=== PATIENT | female | born 1965 | race Caucasian/White ===

== ENCOUNTER 2017-09-02 15:51 | Emergency (ER) | payer BC ==
[2017-09-02 16:03] VITALS: BP 125/66
[2017-09-02] MEDS ORDERED: HYDROcodone/ACETAMIN 5-325 MG* 1 TAB PO ONE (16:13)
[2017-09-02] MEDS ORDERED: Ketorolac INJ* 30 MG/ML 1 ML VIAL IM ONE (16:13)
[2017-09-02] MEDS ORDERED: Dexamethasone IV* 4 MG/ML 1 ML (4 MG) IM ONE (16:13)
[2017-09-02] MEDS ORDERED: Orphenadrine Citrate IV* 30 MG/ML 2 ML VIAL IM ONE (16:13)
--- NOTE | 2017-09-02 16:52 | RAD ---
INDICATION: Low back pain. COMPARISON: There are no prior studies available for comparison. TECHNIQUE: AP and lateral views of the lumbar spine were obtained. The L1 vertebra is partially cut off on the lateral image. FINDINGS: The vertebra are in normal alignment. No fracture is seen. There is moderate to severe disc space narrowing at the L5-S1 level. The remaining disc spaces appear maintained. IMPRESSION: MODERATE TO SEVERE DISC SPACE NARROWING AT THE L5-S1 LEVEL.
--- NOTE | 2017-09-02 16:53 | RAD ---
INDICATION: Back pain. COMPARISON: There are no prior studies available for comparison. TECHNIQUE: 3 views of the sacrococcygeal spine were obtained. FINDINGS: The vertebra are in normal alignment. No fracture is seen. There appears to be facet osteoarthritis at the L5-S1 level. IMPRESSION: 1. NO EVIDENCE FOR FRACTURE. 2. FACET OSTEOARTHRITIS AT THE L5-S1 LEVEL.
--- NOTE | 2017-09-04 12:29 | ED ---
Shoaib Harper Angela, scribed for Oscar Barlow MD on 09/02/17 at 1614 . Back Pain - HPI Summary HPI Summary: This pt is a 52 y/o female presenting to [facility] c/o lower back pain x2 days. Pt reports she was doing "barn chores" over the weekend and after this she began to have low back pain. She states her her low back pain has been progressively worsening and now has right gluteal pain. 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 Pt reports she now feels tight and is unable to bend down secondary to pain. She rates her pain 9/10 in severity. Additionally c/o nausea. Denies urinary or bowel dysfunction, weakness, numbness or tingling in LE. She reports taking 750 mg of robaxin this morning with no relief. She is currently on Lopressor, Voltaren for endocarditis, synthroid, baby aspirin, B12. - History of Current Complaint Chief Complaint: EDBackInjuryPain Stated Complaint: LOWER BACK PAIN Time Seen by Provider: 09/02/17 16:05 Hx Obtained From: Patient Onset/Duration: Lasting Days, Still Present Onset/Duration: Started Days Ago, Still Present Timing: Constant, Lasting Days Back Pain Location: Is Discrete @ - low back and right gluteus Severity Currently: Severe Pain Intensity: 9 Pain Scale Used: 0-10 Numeric Aggravating Symptom(s): Movement, Bending Alleviating Symptom(s): Other - standing up Associated Signs And Symptoms: Negative: Weakness, Numbness, Tingling, Bladder Incontinence, Bowel Incontinence - Allergies/Home Medications Allergies/Adverse Reactions: Allergies Allergy/AdvReac Type Severity Reaction Status Date / Time No Known Allergies Allergy Verified 09/02/17 16:11 PMH/Surg Hx/FS Hx/Imm Hx Endocrine/Hematology History: Reports: Hx Thyroid Disease Denies: Hx Diabetes, Hx Anemia Cardiovascular History: Reports: Other Cardiovascular Problems/Disorders - endocarditis Denies: Hx Pacemaker/ICD GI History: Denies: Hx Jaundice Sensory History: Denies: Hx Hearing Aid Psychiatric History: Denies: Hx Panic Disorder - Cancer History Hx Chemotherapy: No Hx Radiation Therapy: No - Surgical History Surgery Procedure, Year, and Place: UTERINE ABALSION 07/2011,APPENDECTOMY, TONSILS - Immunization History Date of Tetanus Vaccine: 2012 Date of Influenza Vaccine: 2012 Infectious Disease History: No Infectious Disease History: Denies: Traveled Outside the [place] in Last 30 Days - Family History Family History: Mother: skin [place]. - Social History Alcohol Use: None Substance Use Type: Reports: None Smoking Status (MU): Never Smoked Tobacco Review of Systems Negative: Fever, Chills ENT: Negative Cardiovascular: Negative Respiratory: Negative Positive: Nausea Negative: incontinence - urinary or bowel Musculoskeletal: Other - low back pain, right gluteal pain Negative: Headache, Weakness, Paresthesia, Numbness All Other Systems Reviewed And Are Negative: Yes Physical Exam - Summary Physical Exam Summary: VITAL SIGNS: Reviewed. GENERAL: Patient is a well-developed and nourished female who is lying comfortable in the stretcher. Patient is not in any acute respiratory distress. HEAD AND FACE: No signs of trauma. No ecchymosis, hematomas or skull depressions. No sinus tenderness. EYES: PERRLA, EOMI x 2, No injected conjunctiva, no nystagmus. EARS: Hearing grossly intact. Ear canals and tympanic membranes are within normal limits. MOUTH: Oropharynx within normal limits. NECK: Supple, trachea is midline, no adenopathy, no JVD, no carotid bruit, no c- spine tenderness, neck with full ROM. CHEST: Symmetric, no tenderness at palpation LUNGS: Clear to auscultation bilaterally. No wheezing or crackles. CVS: Regular rate and rhythm, S1 and S2 present, no murmurs or gallops appreciated. ABDOMEN: Soft, non-tender. No signs of distention. No rebound no guarding, and no masses palpated. Bowel sounds are normal. MSK: FROM in all major joints, no edema, no cyanosis or clubbing. Paraspinal muscle tenderness in the lumbar spine. Vertebral tenderness in the lumbar spine. NEURO: Alert and oriented x 3. No acute neurological deficits. Speech is normal and follows commands. SKIN: Dry and warm Triage Information Reviewed: Yes Vital Signs On Initial Exam: Initial Vitals Temp Pulse Resp BP Pulse Ox 98.8 F 85 18 125/66 100 09/02/17 16:00 09/02/17 16:00 09/02/17 16:00 09/02/17 16:00 09/02/17 16:00 Vital Signs Reviewed: Yes Diagnostics - Vital Signs Vital Signs Temp Pulse Resp BP Pulse Ox 09/02/17 16:00 98.8 F 85 18 125/66 100 - Laboratory Lab Statement: Any lab studies that have been ordered have been reviewed, and results considered in the medical decision making process. - Radiology Sacrum and Coccyx XR Xray Interpretation: No Acute Changes - IMPRESSION: 1. No evidence for fracture. 2. Facet osteoarthritis at the L5-S1 level. Dr. Barlow has reviewed this radiology report. Radiology Interpretation Completed By: Radiologist Lumbar spine XR Xray Interpretation: No Acute Changes - IMPRESSION: Moderate to severe disc space narrowing at the level L5-S1 level. Dr. Barlow has reviewed this radiology report. Radiology Interpretation Completed By: Radiologist Back Pain Course/Dx - Course Assessment/Plan: This pt is a 52 y/o female presenting to [facility] c/o lower back pain x2 days. Pt reports she was doing "barn chores" over the weekend and after this she began to have low back pain. She states her her low back pain has been progressively worsening and now has right gluteal pain. 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 Pt reports she now feels tight and is unable to bend down secondary to pain. She rates her pain 9/10 in severity. Additionally c/o nausea. Sacrum and coccyx XR: 1. No evidence for fracture. 2. Facet osteoarthritis at the L5-S1 level. Lumbar spine XR: Moderate to severe disc space narrowing at the level L5 -S1 level. XRs are negative for fracture or dislocation. In the ED course, the pt was given Decadron, [place], Norflex, and Toradol. Pts symptoms improved and she reports feeling better. Therefore, she will be discharged to home with follow up from her PCP. She was given prescriptions for [place] and Medrol dosepak. Pt was instructed to return to the ED for any worsening or new symptoms. Pt is hemodynamically stable, alert and oriented x3. - Diagnoses Provider Diagnoses: Back pain Discharge - Discharge Plan Condition: Stable Disposition: HOME Prescriptions: HYDROcodone/ACETAMIN 5-325 MG* [[place] 5-325 TAB*] 1 tab PO Q6H PRN #12 tab MDD 4 PRN Reason: Pain Ibuprofen TAB* [Motrin TAB* 600 MG] 600 mg PO Q8H PRN #30 tab PRN Reason: Pain methylPREDNISolone [Medrol Dosepak 4 MG*] 0 mg PO .SEE GERBER INSTRUCTION #1 gerber Patient Education Materials: Back Pain (ED) Forms: *Work Release Referrals: Elsa Francisco NP [Primary Care Provider] - 3 Days Additional Instructions: Please follow up with your primary care provider. RETURN TO THE ED FOR ANY WORSENING SYMPTOMS. The documentation as recorded by the Shoaib plunkett Angela accurately reflects the service I personally performed and the decisions made by Cain demarco Walter, MD.
== END 2017-09-02 18:32 | disposition home or self-care (01) ==
LOC: ED 15:51
DX: M54.9 Dorsalgia, unspecified (principal); M54.5 Low back pain; R11.0 Nausea; Z79.82 Long term (current) use of aspirin
CPT/HCPCS: 72100; 72220; 99282; J1100; J1885; J2360

== ENCOUNTER 2019-08-11 11:22 | Emergency (ER) | payer BC ==
--- OUTSIDE RECORDS SUMMARY | 2019-08-11 11:28 | XMS REPORT | Continuity of Care Document ---
:1965 External Reference #:[id number] Author Name Elsa Francisco N.P. (transmitted by agent of provider Love Sears) Address [address], [place] [address] Care Team Providers Name Role Phone Cherri Menendez MD - Internal Care Team Information Institution Director [phone] Medicine Problems Active Problems Provider Date Hyperlipidemia Elsa Francisco N.P. Onset: 08/19/2011 Margo thyroiditis Todd Danielle M.D. Onset: 08/20/2013 Depressive disorder Elsa Francisco N.P. Onset: 08/19/2011 Obstructive sleep apnea syndrome Rand Barnett MD Onset: 11/28/2015 Fibromyalgia Todd Danielle M.D. Onset: 09/08/2014 Premature beats Elsa Francisco N.P. Onset: 08/19/2011 Chronic pain syndrome Todd Danielle M.D. Onset: 05/25/2013 Immunological Findings Nonspecified Other & Todd Danielle M.D. Onset: 2012 Unspecified Localized, primary osteoarthritis Todd Danielle M.D. Onset: 12/22/2014 Dyspnea Rand Barnett MD Onset: 10/30/2016 Social History Type Date Description Comments Sex Unknown Tobacco Use Start: Unknown Never Smoked Cigarettes ETOH Use Denies alcohol use Recreational Drug Use Denies Drug Use Tobacco Use Start: Unknown Patient has never smoked Smoking Status Reviewed: 08/05/19 Patient has never smoked Exercise Type/Frequency Exercises sporadically Allergies, Adverse Reactions, Alerts Description No Known Drug Allergies Medications Active Medications SIG Qnty Indications Ordering Date Provider Multaq take 1 tab by 180tabs I49.3 Rubina Barboza, 10/18/2016 400mg Tablets mouth twice a day M.D. Metoprolol Succinate 1/2 tab by mouth 45tabs Rubina Brazoria, 08/21/2015 ER every day M.D. 50mg Tablets ER 24HR Ampicillin 4 capsules 30mins 4caps Elsa Francisco, 12/28/2009 500mg before dental N.P. Capsules procedure Aspir-81 1 po qd 100tabs Unknown 81mg Tablets DR History Medications Levothyroxine Sodium 1 by mouth 30tabs Elsa Maryam, 05/27/2019 - every day N.P. 07/19/2019 25mcg Tablets Florastor 1 by mouth 60caps R19.7 Elsa Gurrolamichael, 04/29/2019 - 250mg Capsules twice a day N.P. 07/19/2019 Immunizations CPT Code Status Date Vaccine Lot # [id number] Given 04/20/2013 Tdap - Tetanus/Diptheria/Acellular Pertussis [id number] Given 05/19/2012 Influenza Virus 3Yrs & Over Vital Signs Date Vital Result Comment 08/05/2019 8:57am Height 66.75 inches 5'6.75" Weight 206.50 lb Heart Rate 70 /min BP Systolic Sitting 117 mmHg BP Diastolic Sitting 74 mmHg Body Temperature 97.7 F O2 % BldC Oximetry 99 % BMI (Body Mass Index) 32.6 kg/m2 07/21/2019 7:36am Height 66.75 inches 5'6.75" Weight 203.00 lb w/ shoes Heart Rate 84 /min BP Systolic Sitting 116 mmHg BP Diastolic Sitting 79 mmHg BMI (Body Mass Index) 32.0 kg/m2 Results Test Acquired Date Facility Test Result H/L Range Note Laboratory test 07/21/2019 [facility] TSH 2.19 Normal 0.34- 5.[address] (Thyroid mcIU/[place] [address] Stim [phone] Horm) Free T4 (Free Thyroxine) 0.88 ng/dL Normal 0.61-1.12 T3 Total 108 ng/dL Normal 87-178 TSH Receptor Assay 4.04 IU/L Abnormal 1 Laboratory 05/27/2019 [facility] TSH (Thyroid 0.17 Low 0.34- 5.[address] Stim [facility]) mcIU/[place] [address] [phone] Laboratory 04/30/2019 [facility] C Difficile SEE RESULT 2 test finding [address] [place] [address] [phone] CBC Auto Diff 04/29/2019 [facility] White Blood 6.3 Normal 3.5 -10.[address] Count 10^3/[place] [address] [phone] Red Blood Count 5.17 10^6/uL High 3.70-4.87 Hemoglobin 14.8 g/dL Normal 12.0-16.0 Hematocrit 44 % Normal 35-47 Mean Corpuscular Volume 85 fL Normal 80-97 Mean Corpuscular Hemoglobin 29 pg Normal 27-31 Mean Corpuscular HGB Conc 34 g/dL Normal 31-36 Red Cell Distribution Width 14 % Normal 10-15 Platelet Count 182 10^3/uL Normal 150-450 Mean Platelet Volume 8.1 fL Normal 7.4-10.4 Abs Neutrophils 3.0 10^3/uL Normal 1.5-7.7 Abs Lymphocytes 2.4 10^3/uL Normal 1.0-4.8 Abs Monocytes 0.4 10^3/uL Normal 0-0.8 Abs Eosinophils 0.3 10^3/uL Normal 0-0.6 Abs Basophils 0.1 10^3/uL Normal 0-0.2 Abs Nucleated RBC 0.0 10^3/uL Granulocyte % 48.4 % Lymphocyte % 38.5 % Monocyte % 6.7 % Eosinophil % 5.3 % Basophil % 1.1 % Nucleated Red Blood Cells % 0.2 Comp Metabolic 04/29/2019 [facility] Sodium 140 mmol/L Normal 135-[address] [place] [address] [phone] Potassium 4.1 mmol/L Normal 3.5-5.0 Chloride 106 mmol/L Normal 101-111 Co2 Carbon Dioxide 29 mmol/L Normal 22-32 Anion Gap 5 mmol/L Normal 2-11 Glucose 79 mg/dL Normal 70-100 Blood Urea Nitrogen 22 mg/dL Normal 6-24 Creatinine 0.67 mg/dL Normal 0.51-0.95 BUN/Creatinine Ratio 32.8 High 8-20 Calcium 9.5 mg/dL Normal 8.6-10.3 Total Protein 6.4 g/dL Normal 6.4-8.9 Albumin 4.3 g/dL Normal 3.2-5.2 Globulin 2.1 g/dL Normal 2-4 Albumin/Globulin Ratio 2.0 Normal 1-3 Total Bilirubin 0.90 mg/dL Normal 0.2-1.0 Alkaline Phosphatase 125 U/L High 34-104 Alt 36 U/L Normal 7-52 Ast 21 U/L Normal 13-39 Egfr Non- 91.7 >60 Egfr 111.0 >60 3 Laboratory test 04/29/2019 [facility] TSH (Thyroid 0.00 Low 0.34-5.[address] Stim [facility]) mcIU/[place] [address] [phone] 1 REFERENCE VALUE 0.00 - 1.75 ADDITIONAL INFORMATION At a decision limit of 1.75 IU/L, this assay has 97% sensitivity and 99% specificity for detection of Graves' disease. In healthy individuals and in patients with thyroid disease without diagnosis of Graves' disease, the upper limit of anti-TSHR values are 1.22 IU/L and 1.58 IU/L, respectively (97.5th percentiles). Test Performed by: [facility] [address] [place] [address] Blender Operator: Delano Garrett M.D. Ph.D.; CLIA# [id number] 2 SEE RESULT BELOW Name: HEYDI GONZALEZ : [address]: Elsa Francisco NP Acct: [id number] Unit: [id number] AGE: 54 Location: [facility] Re04/30/19 SEX: F Status: REG REF SPEC: [id number] ORSANA: 04/30/19-[address]: Elsa Francisco NP REQ: [id number] RECD: 04/30/19 STATUS:COMP _ SOURCE: STOOL SPDESC: ORDERED: Daniel wheat PCR, Stool Culture, O P: Dena/Crypt Procedure Result Reported Site Stool Culture Final 05/02/19- 1343 ML Result No enteric pathogens isolated Testing for Salmonella, Shigella, Aeromonas, Plesiomonas, Yersinia and Campylobacter are included in a Stool Culture. Vibrio spp not routinely tested for in a stool culture. If testing is desired, please request specifically when placing test order. Sensitivities not routinely performed on stool isolates, as antibiotics may prolong the carriage rate of bacteria. Please contact the microbiology lab if sensitivities are required. Stool Specimen Description Final 05/01/19- 0718 ML Stool Color Brown Stool Form Nonformed Stool Consistency Liquid Shiga Toxin 1 2 Final 05/03/19- 1451 ML Organism 1 Negative Shiga Toxin 1 2 Immunochromatographic Assay. As with all diagnostic procedures, the laboratory results obtained should be used in conjunction with other clinical information available to the physician, including confirmation by another method, as applicable. CONTINUED ON NEXT PAGE DEPARTMENT OF PATHOLOGY, [address] [place] [address] James Noel M.D. Director [facility] # [id number] Patient: HEYDI GONZALEZ [id number] (Continued) Specimen: [id number] Collected: 04/30/19-1199 Received: 04/30/19 (Continued) Procedure Result Reported Site Shiga Toxin 1 2 Final (continued) 05/03/19- 1451 C. difficile PCR Final 04/30/19- 2227 ML Organism 1 027 Presumptive NEGATIVE Organism 2 Toxigenic C.diff NEGATIVE As with all diagnostic procedures, the laboratory results obtained should be used in conjunction with other clinical information available to the physician, including confirmation by another method, as applicable. O P: Giardia/Cryptospor Screen Final 05/03/19- 1240 ML Organism 1 Neg Cryptosporidium/Giardia Giardia and cryptosporidium antigen testing performed by enzyme immunoassay. If patient is immunocompromised or has traveled to or is from a developing country, a full ova and parasite exam with microscopic (OPMIC) is recommended. All samples will be held 21 days in case full ova and parasite testing is requested. Contact the Microbiology Department at [phone]. TEST LIMITATIONS: As with all diagnostic procedures, the results obtained should be used in conjunction with other clinical information available to the physician, including confirmation by another method. Negative results can occur in samples containing antigen below lower limits of detection of the assay. One negative specimen does not rule out the possibility of a parasitic infection. To improve detection it is recommended that three specimens be collected on separate days over a period of not more than seven days. The use of colonic washes, aspirates or other diluted sample types has not been established and could affect the performance of the assay. Stool samples contaminated with an oily or particulate base (eg. Barium, mineral oil etc.) could interfere with the test and are not recommended. * ML - Main Lab . END OF REPORT DEPARTMENT OF PATHOLOGY, [address] [place] [address] James Noel M.D. Director [facility] # [id number] 3 Because ethnic data is not always readily available, this report includes an eGFR for both -Americans and non- Americans. The National Kidney Disease Education Program (NKDEP) does not endorse the use of the MDRD equation for patients that are not between the ages of 18 and 70, are , have extremes of body size, muscle mass, or nutritional status, or are non- or non-. According to the National Kidney Foundation, irrespective of diagnosis, the stage of the disease is based on the level of kidney function: Stage Description GFR(mL/min/1.73 m(2)) 1 Kidney damage with normal or decreased GFR 90 2 Kidney damage with mild decrease in GFR 60-89 3 Moderate decrease in GFR 30-59 4 Severe decrease in GFR 15-29 5 Kidney failure <15 (or dialysis) Procedures Date Code Description Status 10/23/2018 [id number] Mammogram Completed 03/18/2018 [id number] Mammogram Completed 07/31/2015 [id number] Colonoscopy Completed 06/26/2015 [id number] Mammogram Completed 07/01/2013 [id number] Mammogram Completed 06/02/2012 [id number] Mammogram Completed 04/13/2010 [id number] Mammogram Completed 07/17/2007 [id number] Mammogram Completed Medical Devices Description No Information Available Encounters Type Date Location Provider Dx Diagnosis Office Visit 07/21/2019 [facility]am Madera MD E04.2 Nontoxic 8:00a [facility] multinodular goiter E06.3 Autoimmune thyroiditis E03.9 Hypothyroidism, unspecified R94.6 Abnormal results of thyroid function studies I49.3 Ventricular premature depolarization Office Visit 04/29/2019 9:40a [facility] Internal Elsa Francisco, R19.7 Diarrhea, Medicine - N.P. unspecified Ccmob Assessments Date Code Description Provider 08/05/2019 Z00.00 Encounter for general adult medical examination Elsa Francisco, N.P. without abnormal findings 08/05/2019 Z12.31 Encounter for screening mammogram for malignant Elsa Francisco, N.P. neoplasm of breast 08/05/2019 E04.2 Nontoxic multinodular goiter Elsa Francisco, N.P. 08/05/2019 G47.33 Obstructive sleep apnea (adult) (pediatric) Elsa Francisco N.P. 08/05/2019 I49.3 Ventricular premature depolarization Michael Mcdaniel.Yessi. 07/21/2019 E04.2 Nontoxic multinodular goiter Param Madera MD 07/21/2019 E06.3 Autoimmune thyroiditis Param Madera MD 07/21/2019 E03.9 Hypothyroidism, unspecified Param Madera MD 07/21/2019 R94.6 Abnormal results of thyroid function studies Param Madera MD 07/21/2019 I49.3 Ventricular premature depolarization Param Madera MD 04/29/2019 R19.7 Diarrhea, unspecified Elsa Francisco N.P. Plan of Treatment Future Appointment(s):08/16/2020 8:40 am - [facility] - [facility]08/05/2019 - Elsa Francisco N.P.Z00.00 Encounter for general adult medical examination without abnormal findingsComments:For your routine health maintenance: I encourage you to continue with regular exercise and healthy nutrition. You need to be getting between 1,000 - 1,200 mg of Calcium in daily. The best way to supplement what you get in your diet is to drink Calcium fortified orange juice. If you take a Calcium supplement be sure it has Vitamin D in it to help absorption. Your Tetanus immunization is up to date. You received this in 2012. It is good for 10 years unless you have a major injury, then it is good for 5 years. Your colonoscopy is up to date. You had this in 2015. You will need this repeated in 2020. You had a pap smear in 2017. It was normal and your screening for HPV was negative. You will need a repeat pap smear in 2022. Please get your labs done. I will contact you with your results.Z12.31 Encounter for screening mammogram for malignant neoplasm of breastComments:I have ordered your routine screening mammogram. The imaging department will give you your results at the time of your visit. I encourage you to do self exams. If you should notice any masses or thickening, please give the office a call.E04.2 Nontoxic multinodular goiterComments:Your recent thyroid levels were in normal range. Continue your follow up with Dr Madera.G47.33 Obstructive sleep apnea (adult) (pediatric)Comments:For your sleep apnea continue your management with the sleep clinic.I49.3 Ventricular premature depolarizationComments:For your PVCs continue with your current management. Functional Status Description No Information Available Mental Status Description No Information Available Referrals Refer to Reason for Referral Status Appt Date Param Madera MD Patient with thyroid nodules and Patient Notified 2019 hyperthyroidism. Referred for evaluation and management. Thank you for seeing this very pleasant patient. [address] [facility] [address] [place] [phone]
--- OUTSIDE RECORDS SUMMARY | 2019-08-11 11:28 | XMS REPORT | Continuity of Care Document ---
:1965 External Reference #:[id number] Author Name Param Madera MD (transmitted by agent of provider Sofie Barreto) Address [address] [place] [address] Care Team Providers Name Role Phone Elsa Francisco NP - Family Care Team Information Enrollment Eligibility Representative [phone] Problems Active Problems Provider Date Hyperlipidemia Elsa Francisco N.P. Onset: 08/19/2011 Margo thyroiditis Todd Danielle M.D. Onset: 08/20/2013 Depressive disorder Michael Mcdaniel.Ryan Onset: 08/19/2011 Obstructive sleep apnea syndrome Rand Barnett MD Onset: 11/28/2015 Fibromyalgia Todd Danielle M.D. Onset: 09/08/2014 Premature beats Michael Mcdaniel.Ryan Onset: 08/19/2011 Chronic pain syndrome Todd Danielle [...] Patient has never smoked Smoking Status Reviewed: 07/21/19 Patient has never smoked Exercise Type/Frequency Exercises sporadically Allergies, Adverse Reactions, Alerts Description No Known Drug Allergies Medications Active Medications SIG Qnty Indications Ordering Date Provider Mandibular 11/30/18 reports G47.33 Rand Barnett, 10/30/2016 Advancement Device never used, ins wouldn't pay dear Device dr, please evaluate and fabricate oral appliance for mild sleep apnea Multaq take 1 tab by 180tabs I49.3 Rubina Barboza, 10/18/2016 400mg Tablets mouth twice a day M.D. Metoprolol Succinate 1/2 tab by mouth 45tabs Rubina Burgesssher, 08/21/2015 ER every day M.D. 50mg Tablets [...] CPT Code Status Date Vaccine Lot # [id number] Given 04/20/2013 Tdap - Tetanus/Diptheria/Acellular Pertussis [id number] Given 05/19/2012 Influenza Virus 3Yrs & Over Vital Signs Date Vital Result Comment 07/21/2019 7:36am Height 66.75 inches 5'6.75" Weight 203.00 lb w/ shoes Heart Rate 84 /min BP Systolic Sitting 116 mmHg BP Diastolic Sitting 79 mmHg BMI (Body Mass Index) 32.0 kg/m2 04/29/2019 9:55am Height 66.75 inches 5'6.75" Weight 2203.38 lb Heart Rate 73 /min BP Systolic Sitting 121 mmHg BP Diastolic Sitting 72 mmHg O2 % BldC Oximetry 97 % BMI (Body Mass Index) 347.6 kg/m2 Results Test Acquired Date Facility Test Result H/L Range Note Laboratory test 05/27/2019 [facility] TSH (Thyroid 0.17 Low 0.34-5.[address] Stim Horm) mcIU/[place] [address] [phone] Laboratory test 04/30/2019 [facility] C Difficile SEE RESULT [address] [place] [address] [phone] CBC Auto Diff 04/29/2019 [facility] White Blood 6.3 Normal 3.5 -10.[address] Count 10^3/[place] [address] [phone] Red Blood Count 5.17 10^6/uL High 3.70-4.87 [...] Blood Cells % 0.2 Comp Metabolic 04/29/2019 [facility] Sodium 140 mmol/L Normal 135-[address] [place] [address] [phone] Potassium 4.1 mmol/L Normal 3.5-5.0 Chloride 106 [...] Egfr Non- 91.7 >60 Egfr 111.0 >60 2 Laboratory test 04/29/2019 [facility] TSH (Thyroid 0.00 Low 0.34-5.[address] Stim Horm) mcIU/[place] [address] [phone] 1 SEE RESULT BELOW Name: HEYDI GONZALEZ : [address]: Elsa Francisco NP Acct: [id number] Unit: [id number] AGE: 54 Location: [facility] Re04/30/19 SEX: F Status: REG REF SPEC: [id number] ROSANA: 04/30/19-[address]: Elsa Francisco NP REQ: [id number] RECD: 04/30/19364 STATUS:COMP _ SOURCE: STOOL SPDESC: ORDERED: C. diff PCR, Stool Culture, O P: Dena/Eduardo Procedure Result Reported Site Stool Culture Final [...] CONTINUED ON NEXT PAGE DEPARTMENT OF PATHOLOGY, [address] [place] [address] James Noel M.D. Director KEV # [id number] Patient: HEYDI GONZALEZ [id number] (Continued) Specimen: [id number] Collected: 04/30/19-1199 Received: 04/30/19-1730 (Continued) Procedure Result Reported Site Shiga Toxin 1 2 Final (continued) 05/03/19- 1451 C. difficile PCR Final 04/30/19- 2226 ML Organism 1 027 Presumptive NEGATIVE Organism [...] is requested. Contact the Microbiology Department at [phone]. TEST LIMITATIONS: As with all diagnostic procedures, [...] . END OF REPORT DEPARTMENT OF PATHOLOGY, [address] [place] [address] James Noel M.D. Director [facility] # [id number] 2 Because ethnic data is not always readily [...] dialysis) Procedures Date Code Description Status 10/23/2018 [id number] Mammogram Completed 03/18/2018 [id number] Mammogram Completed 07/31/2015 [id number] Colonoscopy Completed 06/26/2015 [id number] Mammogram Completed 07/01/2013 [id number] Mammogram Completed 06/02/2012 [id number] Mammogram Completed 04/13/2010 [id number] Mammogram Completed 07/17/2007 [id number] Mammogram Completed Medical Devices Description No Information Available Encounters Type Date Location Provider Dx Diagnosis Office Visit 04/29/2019 [facility] Internal Elsa Francisco, R19.7 Diarrhea, 9:[facility] Assessments Date Code Description Provider 07/21/2019 E04.2 Nontoxic multinodular goiter Param Madera MD 07/21/2019 R94.6 Abnormal results of thyroid function studies Param Madera MD 07/21/2019 I49.3 Ventricular premature depolarization Param Madera MD 04/29/2019 R19.7 Diarrhea, unspecified Elsa Francisco NJorgePJorge Plan of Treatment Future Appointment(s):12/01/2019 9:00 am - Param Madera MD at [facility]08/05/2019 9:00 am - Elsa Francisco NJorgePJorge at [facility] Internal Medicine - [facility]07/21/2019 - Param Madera MDE04.2 Nontoxic multinodular goiterNew Labs:TSH (Thyroid Stim Horm), Ordered: 07/21/19Free T4 ( Free Thyroxine), Ordered: 07/21/19T3 Total, Ordered: 07/21/19TSH Receptor Assay , Ordered: 07/21/19New Xrays:NM Thyroid Scan/Uptake W/I-131, Scheduled: Instructions:1. Repeat thyroid function tests at your convenience. 2. We will contact you to schedule an iodine scan. 3. Return in 2 months for repeat thyroid function tests. 4. Return in 4 months for a follow-up visit.R94.6 Abnormal results of thyroid function gmixnuuO43.3 Ventricular premature depolarization Functional Status Description No Information Available Mental Status Description No Information Available Referrals Refer to Reason for Referral Status Appt Param Carrillo MD Patient with thyroid nodules and Patient Notified 2019 hyperthyroidism. Referred for evaluation and management. Thank you for seeing this very pleasant patient. [address] [place] [address] [phone]
[2019-08-11 11:43] VITALS: BP 125/80
--- NOTE | 2019-08-11 11:47 | UC ---
"FLU HPI - HPI Summary HPI Summary: Pt with 2 days body ache, congested, sore throat, cough and sinus pressure + flu exposure in house. facial pressure. cough with yellow sputum. No sob fatigue frontal ramos, no vision changes. no rash, no cp not medications as entered in EMR by cleat maker reviewed this visit - History of Current Complaint Chief Complaint: UCGeneralIllness Stated Complaint: FLU LIKE SYMPTOMS Time Seen by Provider: 08/11/19 11:32 Hx Obtained From: Other: - Carmen Ledezma | Reference #: [id number] ?: No Onset/Duration: Gradual Onset Severity Currently: Moderate Severity Initially: Moderate Pain Intensity: 8 - Allergy/Home Medications Allergies/Adverse Reactions: Allergies Allergy/AdvReac Type Severity Reaction Status Date / Time No Known Allergies Allergy Verified 08/11/19 11:43 Home Medications: Home Medications Aspirin 81 mg CHEW TAB* 81 mg PO DAILY 06/19/12 [History Confirmed 08/11/19] Metoprolol Succinate XL TAB* [Toprol XL TAB*] 25 mg PO QAM 08/09/15 [History Confirmed 08/11/19] Dronedarone TAB* [Multaq TAB*] 400 mg PO BID 04/02/18 [History Confirmed ] Acetaminophen [Tylophen] 1 tab PO ONCE PRN 08/11/19 [History Confirmed 08/11/19] Amoxicillin PO (*) [Amoxicillin 500 MG CAP*] 2 tab PO SEE INSTRUCTIONS 08/11/19 [History Confirmed 08/11/19] Amoxicillin/Clavulanate TAB* [Augmentin TAB 875*] 875 mg PO BID #14 tab [Rx] Fluticasone NASAL SPRAY 50MCG* [Flonase NASAL SPRAY 50MCG*] 2 spray BOTH NARES DAILY #1 btl 08/11/19 [Rx] Oseltamivir Phosphate [Tamiflu] 75 mg PO DAILY #10 capsule 08/11/19 [Rx] guaiFENesin/CODIENE 100mg/10mg [Robitussin AC 100Mg/10Mg in 5 ml] 5 ml PO Q4HR # 100 ml MDD 30 08/11/19 [Rx] PMH/Surg Hx/FS Hx/Imm Hx Previously Healthy: Yes - Surgical History Surgical History: Yes Surgery Procedure, Year, and Place: UTERINE ABALSION 07/2011,APPENDECTOMY, TONSILS. - Family History Known Family History: Positive: Other - flu contact Family History: Mother: skin [place]. - Social History Occupation: Employed Full-time Alcohol Use: Rare Substance Use Type: None Smoking Status (MU): Never Smoked Tobacco Review of Systems All Other Systems Reviewed And Are Negative: Yes Constitutional: Positive: Fever, Fatigue Skin: Positive: Negative ENT: Positive: Sore Throat, Nasal Discharge, Sinus Congestion, Sinus Pain/ Tenderness Respiratory: Positive: Cough Cardiovascular: Positive: Negative Gastrointestinal: Positive: Negative Genitourinary: Positive: Negative Physical Exam - Summary Physical Exam Summary: Vital Signs Reviewed: Yes A+Ox3, tired appearing, congested Eyes: Conjunctiva Clear, DOMONIQUE. EOM intact and full ENT: Hearing grossly normal TM x 2 clear, turbiantes inflammed and boggy, + thick pnd, + TTP max sinuses R>L, mmoist, uvula midline, no exudate, no erythema Neck: Positive: Supple Respiratory: Positive: No respiratory distress, No accessory muscle use + CTA throughout no w/r, no wheeze, cough Cardiovascular: RRR nl s1, s2 no m/r CBT <2 sec abd soft + BS nt/nd no guarding, no distension Musculoskeletal Exam: RAMIREZ x 4 without difficulty Strength Intact, ROM Intact Neurological: Positive: Alert, + sensation throughout Psychological: Positive: Normal Response To steel pourer helper Skin: Positive: no rash, no ecchymosis Triage Information Reviewed: Yes Vital Signs: Initial Vital Signs Temp 99.3 F 08/11/19 11:39 Pulse 78 08/11/19 11:39 Resp 18 08/11/19 11:39 BP 125/80 08/11/19 11:39 Pulse Ox 99 08/11/19 11:39 Flu Course/Dx - Course Course Of Treatment: Pt presents to UC with 3 days body aches, cough, tactile tem, congested, sore throat pt with influenza exposure VS reviewd with with rhinosinusitis, cough coarse no wheeze influenza neg d/w pt tamiflu prophylaxis/treatment dosing recommend supportive care, flonase, secretion, humidified air abx is sx continued strict return precautions pt comfortable and in agreement with plan - Differential Dx/Diagnosis Provider Diagnosis: Rhinosinusitis, Influenza-like illness Discharge ED - Sign-Out/Discharge Documenting (check all that apply): Patient Departure All imaging exams completed and their final reports reviewed: No Studies - Discharge Plan Condition: Stable Disposition: HOME Prescriptions: Amoxicillin/Clavulanate TAB* [Augmentin TAB 875*] 875 mg PO BID #14 tab Fluticasone NASAL SPRAY 50MCG* [Flonase NASAL SPRAY 50MCG*] 2 spray BOTH NARES DAILY #1 btl guaiFENesin/CODIENE 100mg/10mg [Robitussin AC 100Mg/10Mg in 5 ml] 5 ml PO Q4HR # 100 ml MDD 30 Oseltamivir Phosphate [Tamiflu] 75 mg PO DAILY #10 capsule Patient Education Materials: Upper Respiratory Infection (ED), Rhinosinusitis ( ED) Forms: *Work Release Referrals: Elsa Francisco NP [Primary Care Provider] - Additional Instructions: - Stay well hydrated. Drink plenty of non-alcoholic, non-caffinated beverages. - Take tamiflu daily as prescribed - Use nasal spray as prescribed - Alternate ibuprofen (Advil, Motrin) 600mg and Tylenol every 3 hours for pain or fever. Take with food. Do NOT take for more than 4-5 days. - These infections are spread by secretions - do NOT share eating or drinking utensils - clean items you share with other people such as cell phones, computer mouse, TV remote, computer tablets,etc. Once you start to feel better, change your toothbrush and your pillowcase. - get plenty of restful sleep - If your symptoms persist or worsen in the next 48 hours - okay to start antibiotics as prescribed - humidify the air in the room where you sleep - boil water, run a hot steam shower, vaporizer, cups of water by heat register - okay to take over the counter decongestant and cough medication. You have been given a prescription for Robitussin with codeine - this is a narcotic do NOT drive, operate machinery,take other sedating medications, or drink alcohol while taking codeine. - contact your doctor or return with questions or concerns - Billing Disposition and Condition Condition: STABLE Disposition: Home"
[2019-08-11 12:08] LABS: Influenza A Molecular Negative (Negative); Influenza B Molecular Negative (Negative)
== END 2019-08-11 13:02 | disposition home or self-care (01) ==
LOC: UCEAST 11:22
DX: J32.9 Chronic sinusitis, unspecified (principal); M79.10 Myalgia, unspecified site; R05 Cough; R50.9 Fever, unspecified; R09.89 Other specified symptoms and signs involving the circulatory and respiratory systems; J02.9 Acute pharyngitis, unspecified; Z79.82 Long term (current) use of aspirin
CPT/HCPCS: 99212; G0463